=== PATIENT | female | born 1990 | race Two or more races ===

== ENCOUNTER 2017-02-14 06:15 | Inpatient (IN) | payer MEDICAID ==
[~2017-02-14] VITALS: Ht 160 cm; Wt 68.1 kg
[2017-02-14 06:33] VITALS: Ht 160 cm; Wt 68.1 kg
[2017-02-14 06:34] VITALS: BP 122/77; PULSE 72; RESP 18
[2017-02-14] MEDS ORDERED: PREN1TAB79 PO (06:50)
[2017-02-14] MEDS ORDERED: LACTATED RINGER'S 1,000 ML IV SCH (07:05)
--- NOTE | 2017-02-14 07:18 | HP ---
Date/Time of Note Date/Time of Note DATE: 02/14/17 TIME: 07:16 OB - History Hx of Present Free Text/Dictation IUP at 39 weeks who reports in labor Care: Good Care Ultrasounds: Normal mid trimester US Obstetrical Complications: None Medical Complications: None Past Family/Social History * Past Medical, Surgical, Family and Obstetric Histories reviewed from chart. OB Admission Exam Vital Signs Vital Signs Vital Signs Date Time Temp Pulse Resp B/P Pulse Ox O2 Delivery O2 Flow Rate FiO2 02/14/17 06:34 98.4 72 18 122/77 Room Air Physical Exam HEENT: WNL Heart: Rhythm Normal Lungs: Clear, Equal Abdomen: WNL Extremities: Normal Reflexes: Normal Cervical Dilatation: 4cm Effacement: 75% Membranes: Intact OB Assessment/Plan Reason for admission: active labor Plan: Expectant Management ENRICO HUNTER MD February 14, 2017 07:18
--- NOTE | 2017-02-14 07:19 | TRIAGE ---
OB Triage Datetime Report Generated by CPN: 02/14/2017 07:19 Datetime: 02/14/2017 07:06 Membrane Status: Bulging Datetime: 02/14/2017 06:38 Vaginal Exam Dilatation (cms): 4.0 Effacement (%): 100 Station: -2 Exam By: madina Vaginal Bleeding: None Cervix, Consistency: Soft Datetime: 02/14/2017 06:37 Assessment Type: Triage Maternal Assessment Level of Consciousness: Fully Conscious DTR's/Clonus: DTRs 2+; No Clonus Headache: Denies Blurred Vision: No Respiratory Effort: Unlabored; Regular Rhythm; Equal Expansion Breath Sounds, Left: Clear and Equal Breath Sounds, Right: Clear and Equal Nausea/Vomiting: Denies RUQ Epigastric Pain: Denies Facial Edema: None Fall Risk Assessment History of Falling: (0) No Secondary Diagnosis: (0) No Ambulatory Aid: (0) Bedrest/Nurse Assist IV Therapy: (0) No Gait: (0) Normal/Bedrest/Immobile Mental Status: (0) Oriented to Own Ability Comment: presented to triage c_o uc's since 0500. denies leaking or bleeding. placed on efm call l ight within reach. family present at bedside. Datetime: 02/14/2017 06:36 Time of Arrival: 02/14/2017 06:09 Arrived By: Ambulatory Arrived From: Home Chief Complaint: uc's q 5 min. since 0500 Movement: Present Contractions: Irregular Time Contractions Began: 02/14/2017 05:00 Contractions: q5mins Rupture of Membranes: Denies Vaginal Bleeding: None Vaginal Discharge: Denies Recent Sexual Intercouse: Denies Abdominal Trauma: Not Applicable Patient Complaints: Contractions Time Provider Notified: 02/14/2017 07:00 Provider Notified: Datetime: 02/14/2017 06:32 Labor Evaluation Frequency: irregular Monitor Mode: External Quality: Mild Pattern: Normal: <= 5 Contractions in 10 Minutes Resting Tone [place]: Relaxed Heart Rate FHR Baseline Rate: 115 Monitor Mode: External US Comments: placed on efm Datetime: 02/14/2017 06:31 Stage of : OB Triage Temperature Route: Oral Pain Assessment Pain Scale: 5 Pain Presence: Intermittent Pain Type: Cramping; Contraction Pain Location: Abdomen; Back Pain Relief Measures: Comfort Measures
[2017-02-14] MEDS ORDERED: CARBOPROST 250 MCG INJ IM PRN (07:30)
[2017-02-14] MEDS ORDERED: LACTATED RINGER'S 1,000 ML IV PRN (07:30)
[2017-02-14] MEDS ORDERED: METHYLERGONOVINE 0.2 MG INJ IM PRN (07:30)
[2017-02-14] MEDS ORDERED: IBUPROFEN 600 MG TAB PO PRN (07:30)
[2017-02-14] MEDS ORDERED: OXYTOCIN 30 UNITS/LR 500 ML IV SCH ×2 (07:30)
[2017-02-14] MEDS ORDERED: MISOPROSTOL 200 MCG TAB PR PRN (07:30)
[2017-02-14] MEDS ORDERED: BUTORPHANOL 2 MG INJ IV PRN (07:30)
[2017-02-14] MEDS ORDERED: LIDOCAINE 1% (MPF) 30 ML INJ INJ PRN (07:30)
[2017-02-14] MEDS ORDERED: OXYTOCIN 30 UNITS/LR 500 ML IV PRN (07:30)
[2017-02-14 07:57] LABS: ADD SCAN DIFF NO
[2017-02-14 08:01] LABS: BASOPHILS % 0.2 % (0.0-2.0); EOSINOPHILS # 0.1 10^3/ul (0.0-0.5); EOSINOPHILS % 0.6 % (0.0-7.0); HEMATOCRIT 41.9 % (37.0-47.0); HEMOGLOBIN 13.9 g/dl (12.0-16.0); LYMPHOCYTES # 1.7 10^3/ul (0.8-2.9); LYMPHOCYTES % 11.9 % (15.0-51.0); MEAN CORPUSCULAR HEMOGLOBIN 30.2 pg (29.0-33.0); MEAN CORPUSCULAR HGB CONC 33.2 g/dl (32.0-37.0); MEAN CORPUSCULAR VOLUME 91.1 fl (82.0-101.0); MEAN PLATELET VOLUME 10.1 fl (7.4-10.4); MONOCYTE # 0.7 10^3/ul (0.3-0.9); MONOCYTES % 5.2 % (0.0-11.0); NEUTROPHIL # 11.3 10^3/ul (1.6-7.5); NEUTROPHILS % 81.1 % (39.0-77.0); PLATELET COUNT 217 10^3/UL (140-415); WHITE BLOOD COUNT 13.9 10^3/ul (4.8-10.8)
[2017-02-14 08:18] LABS: INR 0.9; PROTIME 12.1 Sec (12.2-14.2); PT RATIO 0.9
[2017-02-14 08:19] LABS: PARTIAL THROMBOPLASTIN TIME 25.8 Sec (25.0-35.0)
[2017-02-14] MEDS ORDERED: FENTAnyl 2MCG/ML-ROPIV 0.2% 100 ML ONE (08:26)
[2017-02-14] MEDS ORDERED: NALOXONE (0.4 MG/ML) INJ IV PRN ×2 (09:30→14:00)
[2017-02-14] MEDS ORDERED: FENTAnyl 2MCG/ML-ROPIV 0.2% 100 ML BAG EPI SCH ×2 (09:30→14:00)
--- NOTE | 2017-02-14 12:59 | LDN ---
Date/Time of Note Date/Time of Note DATE: 02/14/17 TIME: 12:56 Delivery Summary Normal spontaneous vaginal delivery of a baby boy from OA position cord clamped after stopped pulsing placenta spontaneous expulsion inspected complete perineal and vaginal inspection no laceration estimated blood loss 200 cc Weeks of Gestation 39 weeks 5 day Placenta Delivered: Spontaneously Meconium: none Episiotomy: No Laceration repair: None Sponge & Needle done & correct: Yes All needle counts correct: Yes Any foreign bodies felt in the: No Problems: Delivery Information Sex Infant Sex: male Apgars 1 Minute: 9 5 Minute: 9 Suctioning Nose & mouth suctioned at mikaela: Yes Delee suction performed: No Umbilical Cord Umbilical cord with: 3 Vessels Cord presentations: no nuchal cord Cord Blood was obtained: Yes ROBERT SALAZAR MD February 14, 2017 12:59
[2017-02-14 14:40] VITALS: BP 123/67; PULSE 63; RESP 17
[2017-02-14] MEDS ORDERED: OXYCODONE/ASPIRIN (4.88/325) TAB PO PRN ×2 (15:00)
[2017-02-14] MEDS ORDERED: WITCH HAZEL/GLYCERIN PAD PR PRN (15:00)
[2017-02-14] MEDS ORDERED: ONDANSETRON 4 MG INJ IV PRN (15:00)
[2017-02-14] MEDS ORDERED: ACETAMINOPHEN/CODEINE #3 TAB PO PRN ×2 (15:00)
[2017-02-14] MEDS ORDERED: LANOLIN 7 GM TUBE TOP PRN (15:00)
[2017-02-14] MEDS ORDERED: ACETAMINOPHEN 325 MG TAB PO PRN (15:00)
[2017-02-14] MEDS ORDERED: BENZOCAINE 20% 56 ML SPRAY TOP PRN (15:00)
[2017-02-14] MEDS ORDERED: DIBUCAINE 1% 30 GM OINT PR PRN (15:00)
[2017-02-14] MEDS: IBUPROFEN 600 MG TAB PO SCH ×2 (17:41→23:35)
[2017-02-14] MEDS: OXYTOCIN 30 UNITS/LR 500 ML IV SCH ×2 (17:41→22:10)
[2017-02-14 19:45] VITALS: BP 129/76; PULSE 60; RESP 18
[2017-02-14] MEDS: SENNA/DOCUSATE NA (8.6MG/50MG) TAB PO SCH (21:11)
[2017-02-15 04:15] VITALS: BP 110/61; PULSE 73; RESP 18
[2017-02-15] MEDS: IBUPROFEN 600 MG TAB PO SCH ×4 (06:08→23:44)
[2017-02-15 08:00] VITALS: BP 103/59; PULSE 57; RESP 16
[2017-02-15 08:16] LABS: ADD SCAN DIFF NO
[2017-02-15 08:47] LABS: HEMATOCRIT 38.6 % (37.0-47.0); HEMOGLOBIN 12.7 g/dl (12.0-16.0); LYMPHOCYTES % 11.4 % (15.0-51.0); MEAN CORPUSCULAR HEMOGLOBIN 29.9 pg (29.0-33.0); MEAN CORPUSCULAR HGB CONC 32.9 g/dl (32.0-37.0); MEAN CORPUSCULAR VOLUME 90.8 fl (82.0-101.0); MEAN PLATELET VOLUME 10.5 fl (7.4-10.4); MONOCYTES % 4.8 % (0.0-11.0); NEUTROPHILS % 81.8 % (39.0-77.0); PLATELET COUNT 199 10^3/UL (140-415); RED BLOOD COUNT 4.25 10^6/ul (4.20-5.40); WHITE BLOOD COUNT 13.4 10^3/ul (4.8-10.8)
[2017-02-15 08:48] LABS: BASOPHILS % 0.3 % (0.0-2.0); EOSINOPHILS # 0.1 10^3/ul (0.0-0.5); LYMPHOCYTES # 1.5 10^3/ul (0.8-2.9); MONOCYTE # 0.6 10^3/ul (0.3-0.9); NEUTROPHIL # 10.9 10^3/ul (1.6-7.5)
--- NOTE | 2017-02-15 09:49 | PN ---
Date/Time of Note Date/Time of Note DATE: 02/15/17 TIME: 09:49 OB Subjective Subjective Subjective day 1 Afebrile VS stable abdomen soft uterus firm lochia moderate extremity normal ambulation encouraged. Laboratory Tests Test 02/15/17 07:30 White Blood Count 13.410^3/ul Red Blood Count 4.2510^6/ul Hemoglobin 12.7g/dl Hematocrit 38.6% Mean Corpuscular Volume 90.8fl Mean Corpuscular Hemoglobin 29.9pg Mean Corpuscular Hemoglobin Concent 32.9g/dl Red Cell Distribution Width 13.0% Platelet Count 90517^3/UL Mean Platelet Volume 10.5fl Neutrophils % 81.8% Lymphocytes % 11.4% Monocytes % 4.8% Eosinophils % 1.0% Basophils % 0.3% Nucleated Red Blood Cells % 0.0/100WBC Neutrophils # 10.910^3/ul Lymphocytes # 1.510^3/ul Monocytes # 0.610^3/ul Eosinophils # 0.110^3/ul Basophils # 0.010^3/ul Nucleated Red Blood Cells # 0.010^3/ul Current Medications Medications (Trade) Dose Ordered Sig/Edilberto Route PRN Reason Start Time Stop Time Status Last Admin Dose Admin Lactated Ringer's (Lr) 1,000 ml @ 125 mls/hr Q8H IV 02/14/17 07:05 02/14/17 15:00 DC 02/14/17 08:05 Butorphanol Tartrate (Stadol) 2 mg Q2H PRN IV PAIN 02/14/17 07:30 02/14/17 15:00 DC Lidocaine 30 ml 30 ml ONCE PRN INJ EPISIOTOMY/TEARING 02/14/17 07:30 02/14/17 15:00 DC Oxytocin/Lactated Ringer's 500 ml @ 125 mls/hr ONCE -MAY REPEAT X1 IV 02/14/17 07:30 02/14/17 15:01 DC 02/14/17 12:56 Oxytocin/Lactated Ringer's 500 ml @ 125 mls/hr ONCE IV 02/14/17 07:30 02/14/17 15:01 DC 02/14/17 13:09 Ibuprofen 600 mg 600 mg ONCE PRN PO Mild Pain (Pain Score 1-3) 02/14/17 07:30 02/14/17 15:01 DC Lactated Ringer's 1,000 ml @ 2,000 mls/hr Q30M PRN IV PRE-EPIDURAL BOLUS 02/14/17 07:30 02/14/17 15:00 DC 02/14/17 08:55 Oxytocin/Lactated Ringer's 500 ml @ 0 mls/hr ONCE PRN IV For Hemorrhage Management 02/14/17 07:30 02/14/17 15:00 DC Methylergonovine Maleate (Methergine) 0.2 mg ONCE PRN IM VAGINAL BLEEDING 02/14/17 07:30 02/14/17 15:00 DC Carboprost Tromethamine (Hemabate) 250 mcg ONCE PRN IM VAGINAL BLEEDING 02/14/17 07:30 02/14/17 15:00 DC Misoprostol 1000 mcg 1,000 mcg ONCE PRN MD VAGINAL BLEEDING 02/14/17 07:30 02/14/17 15:00 DC [facility] .[facility] 02/14/17 08:26 02/14/17 08:27 DC Naloxone HCl (Narcan) 0.2 mg Q2M PRN IV FOR RESP RATE 8 OR LESS 02/14/17 09:30 02/14/17 13:53 DC Fentanyl/ Ropivacaine 100 ml EPIDURAL (PCEA) EPI 02/14/17 09:30 02/14/17 13:53 DC Naloxone HCl (Narcan) 0.2 mg Q2M PRN IV FOR RESP RATE 8 OR LESS 02/14/17 14:00 02/14/17 15:00 DC Fentanyl/ Ropivacaine 100 ml 100 ml EPIDURAL (PCEA) EPI 02/14/17 14:00 02/14/17 15:00 DC Oxytocin/Lactated Ringer's 500 ml @ 125 mls/hr Q4H IV 02/14/17 14:57 02/14/17 22:56 DC 02/14/17 22:10 Ibuprofen (Motrin) 600 mg Q6 PO 02/14/17 18:00 02/15/17 06:08 Acetaminophen (Tylenol Tab) 650 mg Q4H PRN PO PAIN LEVEL 1-5 02/14/17 15:00 Acetaminophen/ Codeine Phosphate (Tylenol No.3) 1 tab Q4H PRN PO PAIN LEVEL 1-5 02/14/17 15:00 Acetaminophen/ Codeine Phosphate (Tylenol No.3) 2 tab Q4H PRN PO PAIN LEVEL 6-10 02/14/17 15:00 Oxycodone/Aspirin (Percodan) 1 tab Q3H PRN PO PAIN LEVEL 1-5 02/14/17 15:00 Oxycodone/Aspirin (Percodan) 2 tab Q3H PRN PO PAIN LEVEL 6-10 02/14/17 15:00 Ondansetron HCl (Zofran Inj) 4 mg Q6H PRN IV NAUSEA AND/OR VOMITING 02/14/17 15:00 Senna/Docusate Sodium (Senokot-S) 1 tab BID PO 02/14/17 21:00 02/14/17 21:11 Witch Ary/ Glycerin (Tucks Pads) 1 pad BEDSIDE MEDICATION PRN MD HEMORRHOID/EPISIOTMY PAIN 02/14/17 15:00 02/14/17 16:01 Benzocaine (Dermoplast [place]) 1 spray BEDSIDE MEDICATION PRN TOP HEMORRHOID/EPISIOTMY PAIN 02/14/17 15:00 02/14/17 16:00 Dibucaine (Nupercainal) 1 applic BEDSIDE MEDICATION PRN MD HEMORRHOID/EPISIOTMY PAIN 02/14/17 15:00 02/14/17 16:01 Lanolin (Ejx-L-Amvzrz) 1 applic BEDSIDE MEDICATION PRN TOP BEDSIDE FOR ASHLEY TO NIPPLES 02/14/17 15:00 02/14/17 16:01 Measles/Mumps/ Rubella Vaccine Live (Mmr Ii Vaccine) 0.5 ml ONCE ONCE SC* 02/16/17 09:00 02/16/17 09:01 ROBERT SALAZAR MD February 15, 2017 09:49
[2017-02-15] MEDS: SENNA/DOCUSATE NA (8.6MG/50MG) TAB PO SCH ×2 (10:18→21:27)
[2017-02-15] MEDS ORDERED: DIPHTH/TET/ACEL PERTUSS (ADULT) 0.5 ML VIAL IM* ONE (15:30)
[2017-02-15 15:50] VITALS: BP 99/59; PULSE 67; RESP 16
[2017-02-15 19:30] VITALS: BP 113/71; PULSE 63; RESP 18
[2017-02-16 04:00] VITALS: BP 107/65; PULSE 68; RESP 18
[2017-02-16] MEDS: IBUPROFEN 600 MG TAB PO SCH ×2 (05:43→11:45)
[2017-02-16 07:45] VITALS: BP 103/67; PULSE 64; RESP 18
[2017-02-16] MEDS ORDERED: MEASLES,MUMPS,RUBELLA VACCINE INJ SC* ONE (09:00)
[2017-02-16] MEDS: SENNA/DOCUSATE NA (8.6MG/50MG) TAB PO SCH (09:12)
--- NOTE | 2017-02-16 10:24 | PD.PPDC ---
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
--- NOTE | 2017-02-16 10:26 | DS ---
Date/Time of Note Date/Time of Note DATE: 02/16/17 TIME: 10:24 Discharge Summary Admission/Discharge Info Admit Date/Time February 14, 2017 at 07:26 Discharge Date/Time February 16, 2017 at 10:30 AM Final Diagnosis Post normal vaginal delivery Patient Condition: Good Procedures Normal spontaneous vaginal delivery Hx of Present Illness Term Hospital Course Satisfactory uneventful Home Meds Reported Medications Vit W-Ca,Fe,FA(<1 mg) ( Vitamins) 1 Each Tablet, 1 EACH PO DAILY, TAB 02/14/17 Follow-up Plan instructions given recommended to make appointment to be seen at the clinic in 2 weeks Primary Care Provider Care Physician No Primary Time spent on discharge: > 30 minutes ROBERT SALAZAR MD February 16, 2017 10:26
== END 2017-02-16 14:31 | disposition home or self-care (01) | DRG 775 ==
LOC: OBT 06:15 → L-D 06:17 → OBT 07:24 → L-D 07:26 → NR1 15:03 → PP1 15:09
PROVIDERS: ADMIT Obstetrics & Gynecology; ATTEND Obstetrics & Gynecology
PROC: 10E0XZZ Delivery of Products of Conception, External Approach (ICD-10-PCS; principal; 2017-02-14)
PROC: 4A1HX4Z Monitoring of Products of Conception, Cardiac Electrical Activity, External Approach (ICD-10-PCS; 2017-02-14)
PROC: 3E0234Z Introduction of Serum, Toxoid and Vaccine into Muscle, Percutaneous Approach (ICD-10-PCS; 2017-02-15)
DX: O80 Encounter for full-term uncomplicated delivery (principal); Z3A.39 39 weeks gestation of pregnancy; Z37.0 Single live birth; Z23 Encounter for immunization
CPT/HCPCS: 62319; 85025; 85610; 85730; 86592; 86900; 86901; 87340; 90715; G0463; J2590; J3010; J7120